=== PATIENT | female | born 1995 | race Caucasian/White ===

== ENCOUNTER 2019-04-16 15:11 | Emergency (ER) | payer BC ==
--- NOTE | 2019-04-16 15:52 | ED ---
Throat Pain/Nasal Congestion - HPI Summary HPI Summary: The patient is a 23 y/o F presenting to [facility] accompanied by mother with a chief complaint of sudden onset blurred vision approximately five feet away for the last four days and sinus pressure for the last 10 months. She had visited her PCP Dr. Zepeda at [facility] for the sinus pressure, and then once the blurred vision started, she went to the [place] ED, where she had a negative brain CT. Despite negative results thus far, her doctors think that she may have idiopathic intracranial hypertension. She had been advised to get a MRI and LP but hasn't been able to get an appointment yet, which is why she is here today. She denies unsteady gait and headache. She has not visited an cordage sales representative for her symptoms yet. She does not wear contacts or glasses. - History of Current Complaint Chief Complaint: EDEyeProblem Time Seen by Provider: 04/16/19 15:44 Hx Obtained From: Patient Onset/Duration: Sudden Onset, Lasting Days - four days, Still Present Severity: Moderate Associated Signs And Symptoms: Positive: Sinus Discomfort - sinus pressure - Allergies/Home Medications Allergies/Adverse Reactions: Allergies Allergy/AdvReac Type Severity Reaction Status Date / Time No Known Allergies Allergy Verified 04/16/19 15:19 Home Medications: Home Medications Metoprolol Tartrate 50 mg PO DAILY 04/16/19 [History Confirmed 04/16/19] PMH/Surg Hx/FS Hx/Imm Hx Endocrine/Hematology History: Denies: Hx Diabetes Sensory History: Denies: Hx Contacts or Glasses Opthamlomology History: Denies: Hx Legally Blind EENT History: Denies: Hx Deafness Infectious Disease History: No Infectious Disease History: Denies: Traveled Outside the [place] in Last 30 Days - Family History Known Family History: Negative: Hypertension - Social History Hx Substance Use: No Substance Use Type: Reports: None Hx Tobacco Use: No Smoking Status (MU): Never Smoked Tobacco Do You Chew or Dip Tobacco: No Have You Chewed or Dipped Tobacco in the LAST YEAR: No Have You Smoked in the Last Year: No Review of Systems Positive: Blurred Vision - unable to see five feet away Positive: Other - sinus pressure Neurological: Other - NEGATIVE: unsteady gait Negative: Headache All Other Systems Reviewed And Are Negative: Yes Physical Exam - Summary Physical Exam Summary: Appearance: The patient is well-nourished in no acute distress and in no acute pain. Skin: The skin is warm and dry and skin color reflects adequate perfusion. HEENT: The head is normocephalic and atraumatic. The pupils are equal and reactive. Disk margins appear to be shortened. The conjunctivae are clear and without drainage. Nares are patent and without drainage. Mouth reveals moist mucous membranes and the throat is without erythema and exudate. The external ears are intact. The ear canals are patent and without drainage. The tympanic membranes are intact. Neck: The neck is supple with full range of motion and non-tender. There are no carotid bruits. There is no neck vein distension. Respiratory: Chest is non-tender. Lungs are clear to auscultation and breath sounds are symmetrical and equal. Cardiovascular: Heart is regular rate and rhythm. There is no murmur or rub auscultated. There is no peripheral edema and pulses are symmetrical and equal. Abdomen: The abdomen is soft and non-tender. There are normal bowel sounds heard in all four quadrants and there is no organomegaly palpated. Musculoskeletal: There is no back tenderness noted. Extremities are non-tender with full range of motion. There is good capillary refill. There is no peripheral edema or calf tenderness elicited. Neurological: Patient is alert and oriented to person, place and time. The patient has symmetrical motor strength in all four extremities. Cranial nerves are grossly intact. Deep tendon reflexes are symmetrical and equal in all four extremities. Psychiatric: The patient has an appropriate affect and does not exhibit any anxiety or depression. Triage Information Reviewed: Yes Vital Signs On Initial Exam: Initial Vitals Temp Pulse Resp BP Pulse Ox 99.2 F 72 16 153/91 100 04/16/19 15:13 04/16/19 15:13 04/16/19 15:13 04/16/19 15:13 04/16/19 15:13 Vital Signs Reviewed: Yes Diagnostics - Vital Signs Vital Signs Temp Pulse Resp BP Pulse Ox 04/16/19 15:13 99.2 F 72 16 153/91 100 - Laboratory Result Diagrams: 04/16/19 16:55 04/16/19 16:55 Lab Statement: Any lab studies that have been ordered have been reviewed, and results considered in the medical decision making process. Re-Evaluation - Re-Evaluation First Eval Re-Evaluation Time: 18:00 Change: Unchanged Comment: I spoke with the patient concerning her disposition and consults with various physicians. We discussed discharge home with follow up with Dr. Culp tomorrow. EENT Course/Dx - Course Course Of Treatment: Ms. Coates presented after being told at [facility] [place] and that she might have idiopathic intracranial hypertension. Her PCP has been trying to get her an MRI and an LP but having trouble with her insurance. She was nontoxic in appearance with stable vitals. I had a great deal of difficulties seeing her fundus as her I was not holding still. My impression was that there may indeed be some papilledema. I consulted with Dr. Culp who recommended following with her in the office quickly and trying to get an LP today. I'm not confident that I can get a reliable LP as her BMI is 43. I consult with anesthesiology and Dr. Gongora came over and evaluated her. He requested labs and a copy of her CT scan from [facility]. When all of her results are back I called anesthesiology given Dr. Mckenzie came over. He was not comfortable performing an LP at this time and recommended follow-up. Dr. Culp will see her tomorrow in the office and get things going. - Diagnoses Provider Diagnoses: Blurred vision - Provider Notifications Discussed Care Of Patient With: James Culp - neurology Time Discussed With Above Provider: 16:07 Instructed by Provider To: Other - I spoke to Dr. Culp concerning the patient's history and current conditions. He suggests to follow through with an LP by an anesthesiologist. At 16:12, I also spoke with Dr. Anton, anesthesiologist, who will send someone over to perform the LP. Dr. Gongora, anesthesiologY, came to see the patient in the ED at 17:00. He does not want to perform the LP at this time because the CT from [place] has not been received yet. Dr. Rosales, anesthesiology, came to perform the LP at 17:[address] been [address], but he does not think that the patient should go under the procedure at this time because other measures are needed so it would be best to do all of the procedures at once. I consulted with Dr. Culp again at 17:50; he says he will see the patient in his office tomorrow. Discharge - Sign-Out/Discharge Documenting (check all that apply): Patient Departure - Patient will be discharged home. Patient Received Moderate/Deep Sedation with Procedure: No - Discharge Plan Condition: Stable Disposition: HOME Patient Education Materials: Blurred Vision (ED) Referrals: James Culp MD [Medical Doctor] - 04/17/19 Additional Instructions: Follow up with Dr. Culp tomorrow. RETURN TO THE EMERGENCY DEPARTMENT FOR ANY NEW OR WORSENING SYMPTOMS THAT MAY OCCUR. - Billing Disposition and Condition Condition: STABLE Disposition: Home - Attestation Statements Document Initiated by Shannonibe: Yes Documenting Scribe: Lizbeth Swenson Provider For Whom Susanne is Documenting (Include Credential): Dr. Aly Benito MD Scribe Attestation: Lizbeth Wood scribed for Dr. Aly Benito MD on 04/16/19 at 1906. Scribe Documentation Reviewed: Yes Provider Attestation: The documentation as recorded by the Lizbeth cadena accurately reflects the service I personally performed and the decisions made by me, Dr. Aly Benito MD Status of Scribe Document: Viewed
[2019-04-16 17:04] LABS: ABS Basophils 0.1 10^3/ul (0-0.2); ABS Eosinophils 0.1 10^3/ul (0-0.6); ABS Monocytes 0.5 10^3/ul (0-0.8); ABS Neutrophils 5.1 10^3/ul (1.5-7.7); Eosinophil % 1.1 %; Hematocrit 42 % (35-47); Hemoglobin 14.2 g/dL (12.0-16.0); Lymphocyte % 26.1 %; Mean Corpuscular HGB Conc 34 g/dL (31-36); Mean Corpuscular Hemoglobin 28 pg (27-31); Mean Corpuscular Volume 83 fL (80-97); Mean Platelet Volume 8.8 fL (7.4-10.4); Nucleated Red Blood Cells % 0.1; Platelet Count 209 10^3/uL (150-450); Red Blood Count 5.08 10^6 /uL (3.70-4.87); Red Cell Distribution Width 12 % (10.5-15); White Blood Count 7.7 10^3/uL (3.5-10.8)
[2019-04-16 17:22] LABS: C Reactive Protein 11.59 mg/L (<8.01)
[2019-04-16 17:44] LABS: TSH (Thyroid Stimulating Horm) 2.46 mcIU/mL (0.34-5.60)
[2019-04-16 18:06] LABS: Albumin 4.8 g/dL (3.2-5.2); Albumin/Globulin Ratio 1.6 (1-3); BUN/Creatinine Ratio 18.2 (8-20); Calcium 9.9 mg/dL (8.6-10.3); EGFR African American 134.3 (>60); Potassium 4.4 mmol/L (3.5-5.0); Total Bilirubin 0.3 mg/dL (0.2-1.0); Total Protein 7.8 g/dL (6.4-8.9)
[2019-04-16 18:17] VITALS: BP 137/87
[2019-04-16 18:51] LABS: Erythrocyte Sed Rate 10 mm/Hr (0-19)
[2019-04-18 20:57] LABS: Cyclic Citrullinated Peptide <15.6 U
== END 2019-04-16 18:15 | disposition home or self-care (01) ==
LOC: ED 15:11
DX: H53.8 Other visual disturbances (principal)
CPT/HCPCS: 36415; 80053; 84443; 85025; 85652; 86038; 86140; 86200; 99282